=== PATIENT | female | born 1980 | race Caucasian/White ===

== ENCOUNTER → 2020-05-13 | Outpatient (CLI) | payer OTHER | LOC: MRI 12:21 | DX: G43.909 Migraine, unspecified, not intractable, without status migrainosus (principal) | CPT/HCPCS: 70543; 70553; A9577 ==

== ENCOUNTER → 2021-05-20 | Day surgery (SDC) | payer OTHER ==
[~2021-05-20] MED LIST: LEXAPRO10 MG PO; LINZESS72 MCG PO; LO LOESTRIN FE1 EACH PO
== END | disposition home or self-care (01) ==
LOC: OR 07:43
DX: K64.4 Residual hemorrhoidal skin tags (principal); K59.09 Other constipation; E66.9 Obesity, unspecified; K63.89 Other specified diseases of intestine; Z87.891 Personal history of nicotine dependence; Z20.822 Contact with and (suspected) exposure to COVID-19
CPT/HCPCS: 84703; J2704; J7040